=== PATIENT | female | born 1970 | race Caucasian/White ===

== ENCOUNTER 2017-08-18 14:25 | Emergency (ER) | payer OTHER ==
[~2017-08-18] VITALS: Ht 180.3 cm; Wt 88.5 kg
[2017-08-18] MEDS ORDERED: HYDROmorphone PF 1 MG/ML DISP.SYRIN IM ONE (15:10)
[2017-08-18] MEDS ORDERED: HYDR-2758 PO (15:23)
--- NOTE | 2017-08-18 15:23 | PHYS DOC ---
Past History Past Medical History: No Pertinent History Past Surgical History: No Surgical History Alcohol Use: Rarely Drug Use: None Adult General Chief Complaint Chief Complaint: BACK PAIN OR INJURY HPI HPI 46 yo F preseting with right sided lower back pain for 5 days. sharp shooting pain radiating into the right thigh. She denies changes in urinary frequency. She denies any blood in her urine abdominal pain nausea or vomiting. She denies any incontinence perineal paresthesias or weakness numbness or tingling of the legs. She denies any fevers or chills or IV drug use. ROS is neg for cp/soa/n/v. All other review of systems is negative unless otherwise noted in history of present illness. ed course: 46-year-old female with a traumatic lower lumbar back pain suggestive of sciatica versus musculoskeletal back pain. Afebrile with normal heart rate. pt received IM hydromorphone which improved her symptoms and was then d/beny home to f/u with pcp. The patient was then discharged home in stable condition to follow up with their primary care physician over the next 2- 3 days. They were to return if their symptoms worsened or if they were concerned for any reason. [id number] discharge instructions and return precautions were given. Patient's questions were answered to their satisfaction. Patient is comfortable with plan. Review of Systems Review of Systems SEE ABOVE. Current Medications Current Medications Current Medications Medications (Trade) Dose Ordered Sig/Diane Start Time Stop Time Status Last Admin Dose Admin Hydromorphone HCl (Dilaudid) 1 mg 1X ONCE 08/18/17 15:10 08/18/17 15:11 DC 08/18/17 15:02 1 MG Allergies Allergies Allergies Coded Allergies Type Severity Reaction Last Updated Verified No Known Drug Allergies 08/18/17 No Physical Exam Physical Exam SEE ABOVE Constitutional: Well developed, well nourished, no acute distress, non-toxic appearance. [] HENT: Normocephalic, atraumatic, bilateral external ears normal, oropharynx moist, no oral exudates, nose normal. [] Eyes: PERRLA, EOMI, conjunctiva normal, no discharge. [] Neck: Normal range of motion, no tenderness, supple, no stridor. [] Cardiovascular:Heart rate regular rhythm, no murmur [] Lungs & Thorax: Bilateral breath sounds clear to auscultation [] Abdomen: Bowel sounds normal, soft, no tenderness, no masses, no pulsatile masses. [] Skin: Warm, dry, no erythema, no rash. [] Back: No tenderness midline. No step-offs. Mild tenderness on the right paraspinal musculature. Extremities: nontender, no cyanosis, no clubbing, ROM intact, no edema. Normal range of motion of both hips without any pain. Patient is able to ambulate in the emergency room. Neurologic: Alert and oriented X 3, normal motor function, normal sensory function, no focal deficits noted. [] Psychologic: Affect normal, judgement normal, mood normal. [] Current Patient Data Vital Signs Vital Signs Date Time Temp Pulse Resp B/P (MAP) Pulse Ox O2 Delivery O2 Flow Rate FiO2 08/18/17 15:02 Room Air 08/18/17 14:35 97.1 100 16 98 EKG EKG [] Radiology/Procedures Radiology/Procedures [] Course & Med Decision Making Course & Med Decision Making Pertinent Labs and Imaging studies reviewed. (See chart for details) [] Dragon Disclaimer Dragon Disclaimer This electronic medical record was generated, in whole or in part, using a voice recognition dictation system. Departure Departure: Impression: Primary Impression: Musculoskeletal back pain Disposition: HOME, SELF-CARE Condition: STABLE Referrals: PCP,UNKNOWN (PCP) Patient Instructions: Back Exercises, [id number], Back Pain, Adult, Easy-to- Read Additional Instructions: Thank you for allowing us to participate in your care today. Followup with your primary care physician in 3 days if your symptoms do not improve. Call your Primary Doctor tomorrow and inform them of your visit today. If you do not have a primary care provider you can ask for a list of our primary care providers. Return to the emergency department you have any new or concerning findings. This should be evaluated by the primary care physician and any necessary consulting services for continued management within a few days after discharge. Return to emergency room if you have any new or concerning symptoms including but not limited to fever, chills, nausea, vomiting, intractable pain, any new rashes, chest pain, shortness of air, uncontrolled bleeding, difficulty breathing, and/or vision loss. You may have been prescribed medication that can change in your level of thinking and ability to operate machinery. These medications include hydrocodone and Ativan. Also, Benadryl has been known to do this as well. Be sure to check with your pharmacist and ask if the medications you've prescribed can affect your level of consciousness. I recommend not operating heavy machinery or driving while on medication such as these. Scripts Cyclobenzaprine Hcl (CYCLOBENZAPRINE HCL) 5 Mg Tablet 1 TAB PO QHS, #7 TAB Prov: DANTE PACHECO MD 08/18/17 Hydrocodone Bit/Acetaminophen (HYDROCODONE-APAP 5-325 ) 1 Each Tablet 2 TAB PO PRN Q6HRS Y for PAIN, #10 TAB 0 Refills Prov: DANTE PACHECO MD 08/18/17 DANTE PACHECO MD Aug 18, 2017 15:23
[2017-08-18] MEDS ORDERED: CYCL5TAB PO (15:25)
[2017-08-18 15:30] VITALS: BP 143/95
[2017-08-18 16:07] LABS: CLARITY,URINE CLEAR; COLOR,URINE YELLOW; GLUCOSE,URINE NEG (NEG)
[2017-08-18 16:08] LABS: BILIRUBIN,URINE NEG (NEG); NITRITE,URINE NEG (NEG); UROBILINOGEN,URINE 0.2 mg/dL (0.2 mg/dL)
== END 2017-08-18 15:39 | disposition home or self-care (01) ==
LOC: ER 14:25
DX: M54.5 Low back pain (principal)
CPT/HCPCS: 81003; 81025; 96372; 99283; J1170

== ENCOUNTER 2018-06-20 11:48 | Emergency (ER) | payer OTHER ==
[~2018-06-20] VITALS: Ht 180.3 cm; Wt 65.8 kg
[~2018-06-20 11:48] MED LIST: CYCL5TAB PO; HYDR-2758 PO
--- NOTE | 2018-06-20 12:01 | ED.ADGEN ---
Past History Past Medical History: No Pertinent History Past Surgical History: No Surgical History Alcohol Use: Rarely Drug Use: None Adult General Chief Complaint Chief Complaint Left ankle injury HPI HPI Patient is a 47-year-old female presents with left ankle injury which occurred 7 days ago. Patient reports spraining her ankle. She said persistent pain, tenderness and swelling to her left lateral ankle with pain on weightbearing. She is been treating with ibuprofen, rest elevation and ice. She has not been evaluated for symptoms prior to today. No other acute symptoms or complaints[] Review of Systems Review of Systems Review symptoms as per history of present illness. All other review symptoms are negative. [] All other systems were reviewed and found to be within normal limits, except as documented in this note. Allergies Allergies Allergies Coded Allergies Type Severity Reaction Last Updated Verified No Known Drug Allergies 08/18/17 No Physical Exam Physical Exam Constitutional: Well developed, well nourished, no acute distress, non-toxic appearance. [] Back: No tenderness. [] Extremities: Left ankle, tenderness swelling, lateral malleolus, pain with flexion-extension, no obvious deformity. [] Neurologic: Alert and oriented X 3, left lower extremity, sensation, motor function intact. [] Current Patient Data Vital Signs Vital Signs Date Time Temp Pulse Resp B/P (MAP) Pulse Ox O2 Delivery O2 Flow Rate FiO2 06/20/18 11:55 98.1 85 16 98 Room Air EKG EKG [] Radiology/Procedures Radiology/Procedures [Left ankle x-ray: No obvious displaced fx] Course & Med Decision Making Course & Med Decision Making Pertinent Labs and Imaging studies reviewed. (See chart for details) [Recommend supportive care with PCP follow-up.] Final Impression Final Impression [1. Left ankle injury] Dragon Disclaimer Dragon Disclaimer This electronic medical record was generated, in whole or in part, using a voice recognition dictation system. MARY ANN LIM DO Jun 20, 2018 12:01
[2018-06-20 12:45] VITALS: BP 127/84
--- NOTE | 2018-06-20 13:11 | RAD ---
Examination: 3 views left ankle HISTORY: History of twisted ankle, injury COMPARISON: None available FINDINGS: The alignment of the ankle mortise grossly appears unremarkable. There is no obvious acute fracture or dislocation identified. Evaluation of the posterior malleolus is somewhat limited.Mild soft tissue swelling identified lateral to lateral malleolus. Small anterior osteophyte formation identified in the tibial plafond. Findings: 1. No acute osseous findings. 2. Mild soft tissue swelling identified lateral to lateral malleolus. Electronically signed by: Rick Valles MD (06/20/2018 1:07 PM) [facility]
== END 2018-06-20 12:47 | disposition home or self-care (01) ==
LOC: ER 11:48
DX: S99.912A Unspecified injury of left ankle, initial encounter (principal); X50.9XXA Other and unspecified overexertion or strenuous movements or postures, initial encounter; Y93.67 Activity, basketball; Y92.89 Other specified places as the place of occurrence of the external cause; Y99.8 Other external cause status
CPT/HCPCS: 29515; 73610; 99284